=== PATIENT | female | born 1950 | race Caucasian/White ===

== ENCOUNTER → 2018-01-18 | Outpatient (CLI) | payer BC ==
[~2018-01-18] MED LIST: ASPIRIN325 PO; ATORVASTATIN CA40 MG PO; BAYER CHEWABLE81 MG PO; CALCIUM 600 +1 EA11 PO; CLOBETASOL PROP15 GM TOP; COLACE 100 MG100 MG PO; COQ-10100 MG PO; COSAMIN DS CAP1 EAC1 PO; COZAAR100 MG PO; EVISTA PO; HUMALOG100 UNIT/1 SUBQ; KOMBIGLYZE XR1 EAC2 PO; LANOXIN 0.120.125 M1 PO; LANTUS100 UNIT/M SUBQ; METROGEL60 GM TOP; MOBIC7.5 MG PO; NORVASC10 MG PO; OMEGA-31000 M1 PO; ORACEA40 MG PO; OXYCODONE HCL 55 MG PO; PERCOCET PO; PROLIA60 MG/1 ML SQ; TART CHERRY CA1 EACH PO; VITAMIN D31000 UNI2 PO; XARELTO10 MG PO
== END ==
LOC: M.RAD 13:17
DX: Z12.31 Encounter for screening mammogram for malignant neoplasm of breast (principal)

== ENCOUNTER → 2018-02-01 | Outpatient (CLI) | payer BC ==
[2018-02-01 10:54] LABS: CREATININE 0.7 mg/dL (0.6-1.3)
== END ==
LOC: M.LAB 10:30 → M.MRI 11:30
PROVIDERS: Family Medicine
DX: G45.9 Transient cerebral ischemic attack, unspecified (principal); M81.0 Age-related osteoporosis without current pathological fracture

== ENCOUNTER 2019-09-12 13:53 | Inpatient (IN) | payer BC ==
[~2019-09-12] VITALS: Ht 154.9 cm; Wt 64.2 kg
[~2019-09-12 13:53] MED LIST changes: -ATORVASTATIN CA40 MG PO; -COSAMIN DS CAP1 EAC1 PO; +COSAMIN DS CAP1 EACH PO; +LIPITOR40 MG PO
[2019-09-12 14:00] VITALS: BP 156/78
[2019-09-12] MEDS ORDERED: ARICEPT10 M1 PO ×2 (14:04→21:03)
[2019-09-12 14:29] LABS: ABSOLUTE BASOPHILS 0.1 thou/uL (0.0-0.2); ABSOLUTE EOSINOPHILS 0.2 thou/uL (0.0-0.7); ABSOLUTE MONOCYTES 0.4 thou/uL (0.0-1.2); ABSOLUTE NEUTROPHILS 3.3 thou/uL (1.6-8.1); BASOPHILS 0.9 %; EOSINOPHILS 3.9 %; HEMATOCRIT 36.2 % (37.0-47.0); HEMOGLOBIN 12.1 gm/dL (12.0-15.0); LYMPHOCYTES 33.1 %; MCH 26.5 pg (26.0-34.0); MCHC 33.3 g/dL (28.0-37.0); MCV 79.5 fL (80.0-100.0); MPV 8.6 fl. (7.2-11.1); NUCLEATED RBCS 0 /100WBC; PLATELET COUNT* 270 thou/uL (150-400); POLYS 55.1 %; RBC 4.56 mil/uL (4.20-5.00); RDW-CV 15.5 % (10.5-14.5); WBC 5.9 thou/uL (4.0-11.0)
[2019-09-12 14:37] LABS: CALCIUM 9.9 mg/dL (8.5-10.1); CREATININE 0.8 mg/dL (0.6-1.3); POTASSIUM 3.7 mmol/L (3.5-5.1)
[2019-09-12 14:38] LABS: PROTIME 10.7 Seconds (9.20-11.50)
[2019-09-12 14:42] LABS: ALBUMIN 3.5 g/dL (3.4-5.0); TOTAL BILIRUBIN 0.3 mg/dL (<0.1-1.0); TOTAL PROTEIN 7.1 g/dL (6.4-8.2)
--- NOTE | 2019-09-12 18:43 | NUR ---
PT TO MRI, MRI ORESTES TAKE PT TO ROOM AFTER TEST.
[2019-09-12 18:58] VITALS: BP 153/78
[2019-09-12 20:00] VITALS: BP 155/77
[2019-09-12] MEDS ORDERED: COENZYME Q10100 MG PO (21:01)
[2019-09-12] MEDS ORDERED: COLACE100 MG PO (21:02)
[2019-09-12] MEDS ORDERED: COSAMIN DS CAP1 EACH PO (21:03)
[2019-09-12] MEDS ORDERED: COZAAR 25 MG TA25 M1 PO (21:07)
[2019-09-12] MEDS ORDERED: OMEPRAZOLE 20 M20 M1 PO (21:08)
[2019-09-12] MEDS ORDERED: HUMALOG100 UNIT/1 SUBQ (21:14)
[2019-09-13] VITALS: BP 152/88
[2019-09-13 04:00] VITALS: BP 143/86
[2019-09-13 05:21] LABS: HEMATOCRIT 35.3 % (37.0-47.0); HEMOGLOBIN 11.6 gm/dL (12.0-15.0); MCH 26.2 pg (26.0-34.0); MCHC 32.9 g/dL (28.0-37.0); MCV 79.5 fL (80.0-100.0); MPV 8.5 fl. (7.2-11.1); RBC 4.44 mil/uL (4.20-5.00); RDW-CV 15.4 % (10.5-14.5); WBC 5.9 thou/uL (4.0-11.0)
[2019-09-13 05:39] LABS: ALBUMIN 3.1 g/dL (3.4-5.0); ALKALINE PHOSPHATASE 74 U/L (46-116); ANION GAP 10 mmol/L (7-16); BUN 14 mg/dL (7-18); CALCIUM 8.9 mg/dL (8.5-10.1); CHLORIDE 106 mmol/L (98-107); CHOLESTEROL 178 mg/dL (<200); CO2 26 mmol/L (21-32); CREATININE 0.7 mg/dL (0.6-1.3); GLUCOSE 101 mg/dL (70-99); HDL CHOLESTEROL 67 mg/dL (>40); LDL CHOLESTEROL 92 mg/dL (<100); MAGNESIUM 1.7 mg/dL (1.8-2.4); POTASSIUM 3.3 mmol/L (3.5-5.1); SGOT 19 U/L (15-37); SGPT 28 U/L (30-65); SODIUM 142 mmol/L (136-145); TC:HDL 2.7 Ratio (Not establshd); TOTAL BILIRUBIN 0.2 mg/dL (<0.1-1.0); TOTAL PROTEIN 6.3 g/dL (6.4-8.2); TRIGLYCERIDE 99 mg/dL (<150); VLDL 20 mg/dL (<40)
--- NOTE | 2019-09-13 06:06 | NUR ---
ASSUMED CARE OF PT AFTER REPORT AT 1920. PT TRANSFERRED TO RM 223. PT A&OX4. JINGLE WRITER IN PLACE. VSS. ADMISSION HISTORY & PHYSICAL ASSESSMENT COMPLETED AND CHARTED. PT ON RA. PT TRACING SR/1ST DEG ON TELE. PT DENIES ANY PAIN OR DISCOMFORT. NIH CHARTED. PT ABLE TO SLEEP WELL ON BED. CALL LIGHT WITHIN REACH.
[2019-09-13 06:07] LABS: SERUM ASSESSMENT Clear
[2019-09-13 08:17] VITALS: BP 149/73
--- NOTE | 2019-09-13 10:47 | NUR ---
ASSUMED CARE OF PT THIS AM AROUND 0715- JANITOR HELPER IN PLACE ORDERED, TRACING SR WITH 1ST DEGREE- UPON ASSESSMENT PT NOTED TO BE RESTING IN BED, WATCHING TV- PT A&O X4- CONTINENT OF B/B- UP AD-VIJAY IN ROOM, STEADY GAIT NOTED- VSS, O2 SAT 97% ON RA- ABD SOFT/ROUND/NON-TENDER, BS X4 QUADS- LAST BM REPORTED X2 DAYS AGO- FAIR PO INTAKE NOTED THIS AM WITH BREAKFAST- IV NOTED TO RIGHT AC INTACT AND SL-NIH NOTED AT 0 THIS AM- CARDIO CONSULTED NOTED THIS AM R/T ELEVATED TROPS- MRA OF CARTOTIDS COMPLETED THIS, RESULTS NOTED IN MEDITECH- PT UP WALKING HALLWAYS WITH PT THIS AM, TOLERATING WELL- DENIES ANY C/O PAIN/DISCOMFORT AT THIS TIME- CALL LIGHT AND PERSONAL BELONGINGS WITH IN REACH- PT MAKES NEEDS KNOWN- ALL NEEDS MET AT THIS TIME-WCTM
--- NOTE | 2019-09-13 11:26 | EKG ---
[place] [address] ELECTROCARDIOGRAM REPORT Name: SIMON LANIER Room: [address] ADM IN .R.#: [id number] Admission: 09/12/19 Attend Phys: Georgette Deras MD Discharge: Date of : 48 Report #: [id number] THIS REPORT FOR: //name// [facility] ED Test Date: 2019-09-12 Test Time: 15:51:42 Pat Name: SIMON LANIER Department: Room: [facility] Gender: F Formula Clerk: : 1950 Requested By: Dusty Edmondson Order Number: [id number] MD: Carlos Perez Measurements Intervals [place] Rate: 69 P: 29 OR: 207 QRS: 40 QRSD: 98 T: 56 QT: 395 QTc: 423 Interpretive Statements Sinus rhythm Baseline wander in lead(s) V1,V3,V6 Compared to ECG 06/15/2014 10:30:57 No significant changes Electronically Signed On 09-13-2019 11:26:48 GLASS DRILLER by Carlos Perez [email or web address] <ELECTRONICALLY SIGNED> By: Carlos Perez MD, FACC 09/13/19 1126 1551 1551 Carlos Perez MD, [facility] /EPI
[2019-09-13 12:00] VITALS: BP 136/67
[2019-09-13 16:00] VITALS: BP 142/59
[2019-09-13 20:00] VITALS: BP 127/70
[2019-09-14] VITALS: BP 167/80
[2019-09-14 02:12] LABS: GLYCOHEMOGLOBIN (HGB A1C) 7.8 % (4.8-5.6)
[2019-09-14 04:00] VITALS: BP 147/72
--- NOTE | 2019-09-14 05:08 | NUR ---
ASSUMED CARE OF PT AFTER REPORT AT 1930. PT A&OX4. VSS. PHYSICAL ASSESSMENT COMPLETED AND CHARTED. PT ON RA. PT TRACING SR/ DEG ON TELE. PT UPADLIB TO RESTROOM. NIH CHARTED. DENIES ANY PAIN OR DISCOMFORT. PT ABLE TO SLEEP WELL ON BED. CALL LIGHT WITHIN REACH.
[2019-09-14 08:06] VITALS: BP 135/69
--- NOTE | 2019-09-14 09:47 | NUR ---
ASSUMED CARE OF PT THIS AM AROUND 0715- PHARMACY SERVICE ASSOCIATE IN PLACE ORDERED, TRACING SR- UPON ASSESSMENT PT NOTED TO BE RESTING IN BED, WATCHING TV- PT A&O X4- CONTINENT OF BOWEL AND BLADDER- UP AD-VIJAY IN ROOM, STEADY GAIT NOTED- LCTA, RESP EVEN AND UN-LABORED- VSS, O2 SAT 98% ON RA- ABD SOFT/ROUND/NON-TENDER, BS X4 QUADS- PT REPORTS LAST BM 09/13/19- IV NOTED TO RIGHT AC INTACT AND SL- GOOD PO INTAKE NOTED THIS AM WITH BREAKFAST, BS MONITORED ORDERED- SSI AND ORAL MEDICATIONS PRESCRIBED- ARICEPT D/C'D PER NEURO THIS AM- PT DENIES ANY C/O PAIN/DISCOMFORT AT THIS TIME- CALL LIGHT AND PERSONAL BELONGINGS WITH IN REACH- ALL NEEDS MET AT THIS TIME-KASEY
[2019-09-14] MEDS ORDERED: LANOXIN125 MCG PO (10:40)
[2019-09-14] MEDS ORDERED: CLOPIDOGREL75 MG PO (10:40)
[2019-09-14 11:41] VITALS: BP 135/69
--- NOTE | 2019-09-14 12:00 | CON ---
[address] [address] CONSULTATION Name: SIMON LANIER Room: [address] IN .R.#: [id number] Admission: 09/12/19 Attend Phys: Georgette Deras MD Discharge: Date of : 48 Report #: [id number] THIS REPORT FOR: //name// CC: Georgette Carrillo DATE OF SERVICE: 09/13/2019 HISTORY OF PRESENT ILLNESS: The patient is a very pleasant 69-year-old female who awakened yesterday with heaviness and a funny sensation in the left arm. This persisted and she sought assistance in the [facility] Emergency Room. MRI revealed a punctate acute infarct in the right precentral gyrus compatible with her neurologic findings. Today on examination, she continues to note a funny sensation of heaviness with some weakness in left upper extremity. She denies any visual or speech abnormalities and there is no left lower extremity motor or sensory dysfunction. The patient does have a history of hypertension, diabetes, and hypercholesterolemia. Only cardiac problems have been that of paroxysmal supraventricular tachycardia and the aforementioned risk factors. MEDICATIONS: Have included amlodipine, aspirin, atorvastatin, calcium, Coenzyme Q, Aricept, insulin, losartan, meloxicam, omega 3 fatty acids, metformin, and sertraline. She denies any chest pain associated with the acute presentation and there is no history of known coronary disease or prior myocardial infarction. She does note mild dyspnea on exertion. Risk factors are the aforementioned diabetes, hypertension, and hypercholesterolemia. She denies cigarette smoking. PAST MEDICAL HISTORY: Remarkable for diabetes, hyperlipidemia, and hypertension. SOCIAL HISTORY: The patient is a nonsmoker. REVIEW OF SYSTEMS: Remarkable for the following positives. CARDIOVASCULAR: She notes some dyspnea on exertion. ENDOCRINE: She has type 2 diabetes. ALLERGIC AND IMMUNOLOGIC: She notes seasonal allergies. PSYCHIATRIC: There is a history of depression and chronic anxiety. EYES: She wears glasses with some diminution [place] [address] CONSULTATION Name: SIMON LANIER Room: [address]#: [id number] Admission: 09/12/19 Attend Phys: Georgette Deras MD Discharge: Date of : 48 Report #: [id number] Remainder of 13-point review of systems is unremarkable. PHYSICAL EXAMINATION: GENERAL: Demonstrates a pleasant elderly female who is alert and appropriate. VITAL SIGNS: Blood pressure is 145/75, pulse rate is 64 and regular, respirations are 18 per minute. NECK: Jugular venous pressure is normal. There are no carotid bruits. CHEST: Clear. CARDIAC: Reveals normal first and second heart sounds with a grade 2-3/6 systolic ejection type murmur at the base without transmission. ABDOMEN: Soft and nontender. EXTREMITIES: Without edema with intact pulses. NEUROLOGIC: Evaluation reveals mild weakness of the left upper extremity. There are no deformity or arthritic changes. She has no petechiae or ecchymosis. LABORATORY DATA: Remarkable for hemoglobin of 11.6, white blood cell count of 5900 with 264,000 platelets. Sodium 142, potassium 3.3, BUN 14, creatinine 0.7. Troponin minimally elevated at 0.15. IMPRESSION: 1. 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 2. History of paroxysmal supraventricular tachycardia. 3. Hypertension. 4. Hypercholesterolemia. 5. Type 2 diabetes. 6. Minimal increase in troponin I. RECOMMENDATIONS: 1. Continued focus on the primary issue, which is a small CVA related to the right precentral gyrus finding. 2. Continued ____ systemic pressure is acceptable at present. 3. Continue treatment of diabetes and hyperlipidemia. 4. I would not proceed with additional workup with a minimal increase in troponin I, rather than proceeding with echocardiogram to assess global and segmental LV function and potential for an embolic focus. Thank you for allowing us to see the patient in cardiovascular assessment. <ELECTRONICALLY SIGNED> By: Carlos Perez MD, FACC 09/14/19 1200 1035 1425Jofacundo Perez MD, FACC /nt
== END 2019-09-14 12:07 | disposition home or self-care (01) | DRG 65 ==
LOC: M.ERS 13:53 → M.2W 16:17 → M.TBA-ER 16:17 → M.2W 19:31
PROVIDERS: Emergency Medicine Emergency Medical Services; ADMIT Internal Medicine
DX: I63.89 Other cerebral infarction (principal); I47.1 Supraventricular tachycardia; Z96.651 Presence of right artificial knee joint; I10 Essential (primary) hypertension; E78.00 Pure hypercholesterolemia, unspecified; E78.5 Hyperlipidemia, unspecified; E11.9 Type 2 diabetes mellitus without complications; M81.0 Age-related osteoporosis without current pathological fracture; Z79.82 Long term (current) use of aspirin; Z88.0 Allergy status to penicillin; Z88.8 Allergy status to other drugs, medicaments and biological substances; Z79.899 Other long term (current) drug therapy

== ENCOUNTER → 2019-10-08 | Outpatient (CLI) | payer BC ==
[~2019-10-08] MED LIST changes: +ARICEPT10 M1 PO; +CLOPIDOGREL75 MG PO; +COENZYME Q10100 MG PO; +COLACE100 MG PO; +COZAAR 25 MG TA25 M1 PO; +LANOXIN125 MCG PO; +OMEPRAZOLE 20 M20 M1 PO
--- NOTE | 2019-10-08 13:57 | 2DMMODE ---
[place] [address] 2 D/M-MODE ECHOCARDIOGRAM Name: SIMON LANIER Room: [facility]#: [id number] Admission: 10/08/19 Attend Phys: Reid Michel, Discharge: Date of : 48 Date of Service: 10/08/19 1356 Report #: [id number] THIS REPORT FOR: //name// APPROVED REPORT Study performed: 10/08/2019 11:04:57 EXAM: Comprehensive 2D, Doppler, and color-flow Echocardiogram/ Bubble Study Patient Location: Out-Patient BSA: 1.60 HR: 74 bpm BP: 120/70 mmHg Other Information Study Quality: Good Indications CVA/TIA Echo Enhancing Agent Indication: Rule out Shunt Agent(s) / Amount(s) Used: Agitated Saline 10 cc 2D Dimensions IVSd: 10.30 (7-11mm) LVOT Diam: 19.97 (18-24mm) LVDd: 35.09 mm PWd: 8.94 (7-11mm) Ascending Ao: 27.22 (22-36mm) LVDs: 21.92 (25-40mm) Aortic Root: 22.56 mm Volumes Left Atrial Volume (Systole) LA ESV Index: 19.60 mL/m2 Aortic Valve AoV Peak Naresh.: 1.49 m/s AO Peak Gr.: 8.82 mmHg LVOT Max P.11 mmHg AO Mean Gr.: 5.10 mmHg LVOT Mean P.05 mmHg LVOT Max V: 1.42 m/s AO V2 VTI: 31.54 cm LVOT Mean V: 0.93 m/s MUKESH (VTI): 3.00 cm2 LVOT V1 VTI: 30.23 cm AI [place]: 2.39 m/s2 AI PHT: 488.46 [place] [address] 2 D/M-MODE ECHOCARDIOGRAM Name: SIMON LANIER Room: [facility]#: [id number] Admission: 10/08/19 Attend Phys: Reid Michel, Discharge: Date of : 48 Date of Service: 10/08/19 1356 Report #: [id number] Mitral Valve E/A Ratio: 0.65 MV Decel. Time: 308.72 ms MV E Max Naresh.: 0.67 m/s MV PHT: 89.53 ms MVA (PHT): 2.46 cm2 TDI E/Lateral E': 7.44 E/Medial E': 9.57 Medial E' Naresh.: 0.07 m/s Lateral E' Naresh.: 0.09 m/s Pulmonary Valve PV Peak Naresh.: 1.20 m/s PV Peak Gr.: 5.78 mmHg Tricuspid Valve RAP Estimate: 5.00 mmHg TR Peak Gr.: 22.95 mmHg RVSP: 27.95 mmHg PA Pressure: 27.95 mmHg Left Ventricle The left ventricle is normal size. There is normal LV segmental wall motion. There is normal left ventricular wall thickness. Left ventricular systolic function is normal. The left ventricular ejection fraction is within the normal range. LVEF is 60%. Grade I - abnormal relaxation pattern. Right Ventricle The right ventricle is normal size. The right ventricular systolic function is normal. Atria The left atrium size is normal. Injection of bubbles documented no interatrial shunt. The right atrium size is normal. Aortic Valve Aortic valve is mildly calcified. Mild aortic regurgitation. There is no aortic valvular stenosis. Mitral Valve Mild mitral annular calcification. Mitral valve leaflets are mildly calcified. There is no mitral valve regurgitation noted. No evidence of mitral valve stenosis. Tricuspid Valve The tricuspid valve is normal in structure[place] [address] 2 D/M-MODE ECHOCARDIOGRAM Name: SIMON LANIER Yarelis Room: [facility]#: [id number] Admission: 10/08/19 Attend Phys: Reid Michel, Discharge: Date of : 48 Date of Service: 10/08/19 1356 Report #: [id number] regurgitation. Pulmonic Valve The pulmonary valve is normal in structure. There is no pulmonic valvular regurgitation. Great Vessels The aortic root is normal in size. IVC is normal in size and collapses >50% with inspiration. Pericardium There is no pericardial effusion. <Conclusion> The left ventricle is normal size. There is normal left ventricular wall thickness. Left ventricular systolic function is normal. The left ventricular ejection fraction is within the normal range. LVEF is 60%. Grade I - abnormal relaxation pattern. The right ventricle is normal size. The left atrium size is normal. Aortic valve is mildly calcified. Mild aortic regurgitation. There is no aortic valvular stenosis. Mild mitral annular calcification. Mitral valve leaflets are mildly calcified. There is no mitral valve regurgitation noted. No evidence of mitral valve stenosis. The tricuspid valve is normal in structure. Mild tricuspid regurgitation. IVC is normal in size and collapses >50% with inspiration. There is no pericardial effusion. There is normal LV segmental wall motion. Injection of bubbles documented no interatrial shunt. <ELECTRONICALLY SIGNED> By: Carlos Perez MD, FACC 10/08/19 1356 1356 1356 Carlos Perez MD, FACC /INF
== END ==
LOC: M.CRD 09-29 11:00
DX: I08.8 Other rheumatic multiple valve diseases (principal); I47.1 Supraventricular tachycardia

== ENCOUNTER 2020-02-25 19:02 | Inpatient (IN) | payer BC ==
[~2020-02-25] VITALS: Ht 152.4 cm; Wt 65.5 kg
[2020-02-25 19:13] VITALS: BP 144/83
[2020-02-25 19:40] LABS: ABSOLUTE EOSINOPHILS 0.2 thou/uL (0.0-0.7); ABSOLUTE LYMPHOCYTES 1.9 thou/uL (0.8-5.3); ABSOLUTE MONOCYTES 0.5 thou/uL (0.0-1.2); ABSOLUTE NEUTROPHILS 3.6 thou/uL (1.6-8.1); BASOPHILS 0.5 %; EOSINOPHILS 3.1 %; HEMATOCRIT 35.6 % (37.0-47.0); HEMOGLOBIN 11.9 gm/dL (12.0-15.0); LYMPHOCYTES 30.5 %; MCH 25.1 pg (26.0-34.0); MCHC 33.4 g/dL (28.0-37.0); MCV 75.2 fL (80.0-100.0); MONOCYTES 7.3 %; MPV 8.8 fl. (7.2-11.1); NUCLEATED RBCS 0 /100WBC; PLATELET COUNT* 272 thou/uL (150-400); POLYS 58.6 %; RBC 4.74 mil/uL (4.20-5.00); RDW-CV 17.4 % (10.5-14.5); WBC 6.2 thou/uL (4.0-11.0)
[2020-02-25 19:48] LABS: APTT 24.1 Seconds (25.0-31.3); CALCIUM 9.3 mg/dL (8.5-10.1); INR 1.1; POTASSIUM 3.8 mmol/L (3.5-5.1); PROTIME 10.9 Seconds (9.20-11.50)
[2020-02-25 19:52] LABS: ALBUMIN 3.8 g/dL (3.4-5.0); MAGNESIUM 1.6 mg/dL (1.8-2.4); TOTAL BILIRUBIN 0.3 mg/dL (<0.1-1.0); TOTAL PROTEIN 7.3 g/dL (6.4-8.2)
[2020-02-25 20:14] LABS: URINE BILIRUBIN NEGATIVE (Negative); URINE BLOOD NEGATIVE (Negative); URINE CLARITY CLEAR; URINE COLOR YELLOW; URINE GLUCOSE-RANDOM TRACE (Negative); URINE KETONES NEGATIVE (Negative); URINE LEUKOCYTES-REFLEX NEGATIVE (Negative); URINE NITRITE-REFLEX NEGATIVE (Negative); URINE PROTEIN NEGATIVE (Negative); URINE SPECIFIC GRAVITY <= 1.005 (1.005-1.030); URINE UROBILINOGEN 0.2 E.U./dl (0.2-1.0)
[2020-02-25 21:35] VITALS: BP 163/80
[2020-02-25 21:45] VITALS: BP 141/76
[2020-02-26] VITALS: BP 130/80
[2020-02-26 04:00] VITALS: BP 126/66
--- NOTE | 2020-02-26 06:03 | NUR ---
PATIENT ARRIVED ON FLOOR FROM ER AT ABOUT 2140. PATIENT ADMISSION HISTORY AND ASSESSMENT WAS COMPLETED CHARTED. IV FLUIDS WERE STARTED AT 100 ML/HR. PATIENT CONTINUES TO HAVE WEAKNESS IN R ARM AND LEG BUT IS ABLE TO MOVE THEM AND GET TO THE BESIDE COMMODE WITH ASSIST. WILL CONTINUE TO MONITOR.
[2020-02-26 07:51] VITALS: BP 147/85
[2020-02-26 10:25] LABS: CREATININE 0.9 mg/dL (0.6-1.3); MAGNESIUM 1.6 mg/dL (1.8-2.4); POTASSIUM 3.4 mmol/L (3.5-5.1)
[2020-02-26 10:38] LABS: CHOLESTEROL 216 mg/dL (<200); HDL CHOLESTEROL 68 mg/dL (>40); LDL CHOLESTEROL 126 mg/dL (<100); TC:HDL 3.2 Ratio (Not establshd); TRIGLYCERIDE 110 mg/dL (<150); VLDL 22 mg/dL (<40)
[2020-02-26 10:39] LABS: SERUM ASSESSMENT Clear
[2020-02-26 12:42] VITALS: BP 113/74
--- NOTE | 2020-02-26 14:04 | NUR ---
NOTIFIED BY RADIOLOGISTS MRI SHOWS ACUTE LEFT PARIETAL INFARCT. NEUROLOGISTS PAGED AT THIS TIME.
--- NOTE | 2020-02-26 14:20 | EKG ---
[place] [address] ELECTROCARDIOGRAM REPORT Name: SIMON LANIER Room: [address] ADM IN [facility].#: [id number] Admission: 02/25/20 Attend Phys: Kilo Schrader Discharge: Date of : 48 Date of Service: 02/25/201911 Report #: [id number] THIS REPORT FOR: //name// [facility] ED Test Date: 2020-02-25 Test Time: 19:12:05 Pat Name: SIMON LANIER Department: Room: [facility] Gender: F Host: [place] : 1950 Requested By: Lashawn Sim Order Number: [id number] MD: August Rhoades Measurements Intervals [place] Rate: 70 P: 37 AL: 202 QRS: -5 QRSD: 98 T: 48 QT: 382 QTc: 413 Interpretive Statements Sinus rhythm incomplete RBBB old anterior CO Compared to ECG 09/12/2019 15:51:42 No significant changes Electronically Signed On 02-26-2020 14:18:54 CDT by August Rhoades [email or web address] <ELECTRONICALLY SIGNED> By: August Rhoades MD, [facility] 02/26/20 1418 11 11 August Rhoades MD, [facility] /EPI
--- NOTE | 2020-02-26 15:59 | NUR ---
ASSUMED CARE OF PT AROUND 0730 THIS AM. REFER TO ASSESSMENT. PT NOTED TO HAVE NIH AROUND 6 THIS AM. NEUROLOGY CONSULTED THIS SHIFT. STROKE WORKUP INCLUDING US CAROTIDS, ECHO, AND MRI COMPLETED THIS SHIFT. REFER TO RESULTS. PT STARTED ON PT/OT/ST THIS SHIFT. ABLE TO TRANSFER WITH ASSIST X1 TO BSC AND CHAIR. PT CONTINUES TO HAVE WEAKNESS TO RT SIDE. POTASSIUM AND MAGNESIUM BEING REPLACED THIS SHIFT. VSS. TELE SR. NO OTHER CONCERNS AT THIS TIME. CLWR. WCTM.
--- NOTE | 2020-02-26 16:09 | 2DMMODE ---
[place] [address] 2 D/M-MODE ECHOCARDIOGRAM Name: SIMON LANIER Room: [address] IN [facility]#: [id number] Admission: 02/25/20 Attend Phys: Kilo Schrader Discharge: Date of : 48 Date of Service: 02/26/20 1607 Report #: [id number] THIS REPORT FOR: cc: Elise Carrillo,Reid Gibson MD [facility] ~ APPROVED REPORT Study performed: 02/26/2020 15:03:10 EXAM: Comprehensive 2D, Doppler, and color-flow Echocardiogram Patient Location: In-Patient Room #: [facility] Status: routine BSA: 1.61 HR: 72 bpm BP: 147/85 mmHg Rhythm: NSR Other Information Study Quality: Good Indications CVA/TIA Bubble study was completed on prior echo in Sep 2019. It was negative for PFO 2D Dimensions IVSd: 13.52 (7-11mm) LVOT Diam: 19.92 (18-24mm) LVDd: 38.14 mm PWd: 10.65 (7-11mm) Ascending Ao: 33.10 (22-36mm) LVDs: 25.08 (25-40mm) Aortic Root: 31.46 mm Volumes Left Atrial Volume (Systole) LA ESV Index: 22.40 mL/m2 Aortic Valve AoV Peak Naresh.: 1.29 m/s AO Peak Gr.: 6.65 mmHg LVOT Max P.22 mmHg AO Mean Gr.: 3.92 mmHg LVOT Mean P.06 mmHg LVOT Max V: 1.25 m/s AO V2 VTI: 25.48 cm LVOT Mean V: 0.80 m/[place] [address] 2 D/M-MODE ECHOCARDIOGRAM Name: SIMON LANIER Room: [address] IN [facility]#: [id number] Admission: 02/25/20 Attend Phys: Kilo Schrader Discharge: Date of : 48 Date of Service: 02/26/20 1607 Report #: [id number] MUKESH (VTI): 3.01 cm2 LVOT V1 VTI: 24.58 cm Mitral Valve E/A Ratio: 0.66 MV Decel. Time: 273.50 ms MV E Max Naresh.: 0.77 m/s MV PHT: 79.31 ms MVA (PHT): 2.77 cm2 TDI E/Lateral E': 11.00 E/Medial E': 11.00 Medial E' Naresh.: 0.07 m/s Lateral E' Naresh.: 0.07 m/s Pulmonary Valve PV Peak Naresh.: 1.27 m/s PV Peak Gr.: 6.46 mmHg Left Ventricle The left ventricle is normal size. There is a focal region of akinesis involving the apical septum and apex. There is normal left ventricular wall thickness. Left ventricular systolic function is preserved. LVEF is 60-65%. Grade I - abnormal relaxation pattern. Right Ventricle The right ventricle is normal size. The right ventricular systolic function is normal. Atria The left atrium size is normal. The right atrium size is normal. Aortic Valve Mild aortic valve sclerosis. Trace aortic regurgitation. There is no aortic valvular stenosis. Mitral Valve There is mitral annular calcification. There is no mitral valve regurgitation noted. No evidence of mitral valve stenosis. Tricuspid Valve The tricuspid valve is normal in structure. Unable to assess PA pressure. Trace tricuspid regurgitation. Pulmonic Valve The pulmonary valve is normal in structure. There is [place] [address] 2 D/M-MODE ECHOCARDIOGRAM Name: SIMON LANIER Room: [address]#: [id number] Admission: 02/25/20 Attend Phys: Kilo Schrader Discharge: Date of : 48 Date of Service: 02/26/20 1607 Report #: [id number] valvular regurgitation. Great Vessels The aortic root is normal in size. IVC is normal in size and collapses >50% with inspiration. Pericardium There is no pericardial effusion. <Conclusion> The left ventricle is normal size. There is normal left ventricular wall thickness. Left ventricular systolic function is preserved. LVEF is 60-65%. Grade I - abnormal relaxation pattern. There is a focal region of akinesis involving the apical septum and apex. Mild aortic valve sclerosis. Trace aortic regurgitation. There is mitral annular calcification. Unable to assess PA pressure. Trace tricuspid regurgitation. IVC is normal in size and collapses >50% with inspiration. <ELECTRONICALLY SIGNED> By: Reid Michel MD, FACC 02/26/20 1607 1607 1607 Reid Mcihel MD, FACC /INF
[2020-02-26 16:15] VITALS: BP 131/70
--- NOTE | 2020-02-26 17:02 | NUR ---
SW called pt in pt room to complete initial assessment. Pt alert, oriented. Pt lives at home alone. Pt has support in dtr and sister who live in the area. Pt was independent prior to hospitalization. No DME or any hx with SNF or HH services. Pt is not sure of her dc needs at this time. SW to continue to follow to assist with safe dc planning.
--- NOTE | 2020-02-26 17:48 | CON ---
[facility] [address] [place] [address] CONSULTATION Name: SIMON LANIER Room: [address] IN .R.#: [id number] Admission: 02/25/20 Attend Phys: Finesse Waldron Discharge: Date of : 48 Report #: [id number] THIS REPORT FOR: //name// cc: Elise Carrillo Linda J. DO ~ THIS REPORT FOR: //name// CC: Elise Schrader DATE OF SERVICE: 02/26/2020 HISTORY OF PRESENT ILLNESS: This is a 69-year-old female patient, who was evaluated by me for weakness on the right side. I discussed the patient with Dr. Hernandez and I reviewed the notes. The consultation was requested this morning to me, but reviewing the records from the Emergency Room indicated they talked to some neurologist last night when they admitted the patient. There is no further notation for me to find out which neurologist they talked to. In any event, this patient had weakness on the right side, which started at 1730 yesterday as per the Emergency Room note. In the Emergency Room, they did a CT scan of the head, which does not show any acute abnormality. The patient indicated that she had a stroke last year and I did pull out her old record and her MRI had indicated a punctate stroke. She had weakness on the left side, which resolved. It does not look like it lasted very long. REVIEW OF SYSTEMS: Indicate that this present deficit which she is complaining of is pretty unusual. It involved the right shoulder, it involved the right leg, but does involve much of the right hand. She has no speech difficulty associated with it and she does not have any facial palsy. She indicated that she does not have any sensory loss there. A 14-point review of system was carried out. She indicates she has a history of diabetes and hypertension. She had a prior episode of what looked like a stroke at that time from reviewing the old record. Then, she had onset of the right-sided weakness yesterday around 1750 and it is about the same as I understand from the patient. As mentioned above, I received this consult today. PAST MEDICAL HISTORY: Positive for CVA. FAMILY HISTORY: Negative for early age stroke. SOCIAL HISTORY: She denies use of tobacco. PHYSICAL EXAMINATION: GENERAL: Indicates she is alert, responsive, able to follow simple and complex command. Her speech looks intact. NEUROLOGIC: Cranial nerve examination 2-12 looks mostly [place] [address] CONSULTATION Name: MAGDIEL LANIERSHARI Santoyo Room: [address] [place] [facility]#: [id number] Admission: 02/25/20 Attend Phys: Finesse Waldron Discharge: Date of : 48 Report #: [id number] not see any hemianopsia and I did not see any facial weakness. She is pretty significantly weak in the right shoulder and barely moves it there. She can move her right shoulder reasonably well. Right leg, she is weak and she is significantly weak there. She says her sensation is intact and she can tell me about the position sense. EXTREMITIES: She had a knee surgery, so I cannot compare the knee jerks on both sides. There is no papilledema. CARDIAC: Appear unremarkable. Blood pressure is about 113/74, respiration is 18, pulse is 71, temperature is 98.8. LABORATORY DATA: Her white count is 6.2. Glucose is 282. CT as described above and the carotid Doppler appear unremarkable. IMPRESSION: The first thing we need to consider is a small-vessel cerebrovascular accident in this patient. Because of that, I would like to do an MRI as soon as possible. I talked to the MRI people and they said they will do the MRI soon and we will review that. It is unlikely that this patient will be any intervention candidate at this stage. As mentioned above, the Emergency Room records indicate that they talked to neurologist, but I do not know and I cannot find which neurologist they talked to. In any event, the main treatment is going to be the rehab. If the patient had a new stroke, this patient will need extensive workup to look for atrial fibrillation. This patient will also need a collagen vascular workup. She will need to be on a combination of aspirin and Plavix if she has stroke, at least for 30 days, but may be longer. She is already started on statin and she needs to control her vascular risk factor pretty extensively and with this much weakness, she will probably go to rehab and that consultation is already in. Around 50 minutes of time was spent taking care of this patient and majority of that time was spent counseling and coordinating her care, including review of her extensive prior records. <ELECTRONICALLY SIGNED> By: Nithin Parra MD 02/26/20 1748 1333 1354Pgigi Parra MD /nt
[2020-02-26 20:00] VITALS: BP 130/74
[2020-02-26 21:30] LABS: MAGNESIUM 1.8 mg/dL (1.8-2.4); POTASSIUM 3.9 mmol/L (3.5-5.1)
[2020-02-27] VITALS (7 sets, daily range): BP systolic 124–157; BP diastolic 75–84
[2020-02-27 02:07] LABS: GLYCOHEMOGLOBIN (HGB A1C) 8.9 % (4.8-5.6)
--- NOTE | 2020-02-27 05:58 | NUR ---
PATIENT SLEPT MOST OF THE NIGHT. IV REMAINS SALINE LOCKED. R LEG REMAINS VERY WEAK. PATIENT TRANSFERS TO BEDSIDE COMMODE BETTER WITH A GAITBELT AND TWO PEOPLE TO ASSIST. WILL CONTINUE TO MONITOR.
--- NOTE | 2020-02-27 12:33 | NUR ---
Pt may need inpt rehab at dc prior to returning home. SW called pt sister Kelsy who is retired and able to assist pt at dc if needed. Pt has very supportive family and pt sister has a ranch style home so pt could stay with her at dc if needed. SW to continue to follow to assist with safe dc planning. Pending inpt rehab consult/response.
--- NOTE | 2020-02-27 13:24 | NUR ---
ASSUMED CARE OF PATIENT THIS AM AT 0730. PATIENT IS ALERT AND ORIENTED X 4. SHE DENIES PAIN AND DISCOMFORT. PATIENT ASSISTED UP TO THE CHAIR THIS BEFORE LUNCH. FSBS MONITORED. TELE SHOWS NSR. NO DECLINE OF NEURO STATUS. PATIENT IS WANTING TO TAKE HER OWN DOSAGE OF INSULIN. WILL NOTIFY PHYSICIAN. PATIENT IS WORKING WITH PT AND OT.
[2020-02-28] VITALS: BP 139/80
[2020-02-28 04:00] VITALS: BP 138/72
[2020-02-28 08:00] VITALS: BP 140/83
[2020-02-28] MEDS ORDERED: DOXYCYCLINE HYC50 MG PO (10:21)
[2020-02-28] MEDS ORDERED: METROGEL-VAGINA70 GM TOP (10:22)
[2020-02-28] MEDS ORDERED: CO Q-10100 M1 PO (10:32)
[2020-02-28 12:00] VITALS: BP 93/69
[2020-02-28 16:00] VITALS: BP 122/74
[2020-02-28 20:00] VITALS: BP 130/74
[2020-02-29] VITALS: BP 159/88
[2020-02-29 04:00] VITALS: BP 136/68
--- NOTE | 2020-02-29 04:09 | NUR ---
ASSUMED PATIENT CARE AT 1900. ASSESSMENT COMPLETED CHARTED. PATIENT IS NSR ON THE MONITOR. FALL PRECAUTIONS IN PLACE FOR PATIENT SAFETY. HOURLY ROUNDING IN PLACE FOR PATIENT SAFETY. CLWR.
[2020-02-29 04:30] LABS: HEMATOCRIT 33.6 % (37.0-47.0); HEMOGLOBIN 11.1 gm/dL (12.0-15.0); MCH 24.9 pg (26.0-34.0); MCV 75.5 fL (80.0-100.0); MPV 8.2 fl. (7.2-11.1); RBC 4.45 mil/uL (4.20-5.00); RDW-CV 17.1 % (10.5-14.5); WBC 5.7 thou/uL (4.0-11.0)
[2020-02-29 04:53] LABS: ALBUMIN 3.1 g/dL (3.4-5.0); CALCIUM 8.8 mg/dL (8.5-10.1); CREATININE 0.8 mg/dL (0.6-1.3); MAGNESIUM 1.8 mg/dL (1.8-2.4); PHOSPHORUS* 4.1 mg/dL (2.5-4.9); POTASSIUM 3.5 mmol/L (3.5-5.1)
[2020-02-29 05:03] LABS: % SATURATION 10 % (20-39); IRON 33 ug/dL (50-175)
[2020-02-29 08:00] VITALS: BP 144/85
[2020-02-29 12:00] VITALS: BP 127/67
[2020-02-29 17:09] VITALS: BP 118/69
[2020-02-29 20:41] VITALS: BP 153/77
[2020-03-01] VITALS: BP 184/85
[2020-03-01 01:10] VITALS: BP 167/82
[2020-03-01 04:00] VITALS: BP 149/88
--- NOTE | 2020-03-01 05:52 | NUR ---
PT IS ABLE TO COMMUNICATE HER NEEDS TO STAFF EFFECTIVELY. SHE HAS DENIED THE NEED FOR PAIN MEDICATION UP TO THIS TIME. STILL SOME WEAKNESS TO HER RIGHT SIDE, MORE PROMINENT IN THE LEG THAN ARM. POSSIBLE D/C TO REHAB LATER TODAY OR TOMORROW. PT GETTING UP TO BEDSIDE COMODE WITH SBA, WEAKNESS TO RIGHT SIDE, CALLS APPROPRIATELY FOR HELP; TOLERATING WELL.
[2020-03-01] MEDS ORDERED: IRON325 PO (08:49)
[2020-03-01] MEDS ORDERED: ASA5UEC PO (08:49)
[2020-03-01] MEDS ORDERED: FOLIC ACID1 MG PO (08:50)
[2020-03-01 12:07] VITALS: BP 150/70
[2020-03-01 16:00] VITALS: BP 151/76
--- NOTE | 2020-03-01 20:26 | NUR ---
I ASSUMED CARE OF THE PATIENT AT 0700. SHE IS ALERT AND ORIENTED X4 AND IS UP WITH STANDBY ASSIST. SHE USES A GAIT BELT AND A WALKER TO THE BEDSIDE COMMODE. BED IS IN THE LOW LOCKED POSITION AND CALL LIGHT IS IN REACH. HOURLY ROUNDING IS COMPLETED AND PATIENT NEEDS ARE MET. PAIN IS DENIED. IRON INFUSION WAS COMPLETED AND PATIENT SHOULD GO UP TO REHAB, BUT THERE WERE NO BEDS OPEN TODAY, SHOULD BE SOON. NIH WAS COMPLETED AND RIGHT LEG IS JUST HEAVY. SHE JUST NEEDS SOME TIME AND ENCOURAGMENT. BLOOD SUGAR IS MONITORED AND MANAGED. WILL CONTINUE TO MONITOR.
[2020-03-01 20:44] VITALS: BP 152/75
[2020-03-02] VITALS: BP 125/66
[2020-03-02 04:00] VITALS: BP 141/66
--- NOTE | 2020-03-02 05:45 | NUR ---
PT IS ABLE TO COMMUNICATE HER NEEDS TO STAFF EFFECTIVELY. SHE HAS DENIED THE NEED FOR PAIN MEDICATION UP TO THIS TIME. PT GETTING UP TO BEDSIDE COMODE WITH SBA; TOLERATING WELL AND DOING THE MAJORITY OF THE WORK HERSELF, BUT IS STILL A BIT UNSTEADY AND THE RIGHT LEG WILL NOT ALWAYS "COOPERATE" BUT IS IMPROVING VERSUS PREVIOUS NIGHT. POSSIBLE DISCHARGE AND READMIT TO 3RD FLOOR REHAB HERE TODAY.
[2020-03-02 08:13] VITALS: BP 131/58
[2020-03-02 11:46] VITALS: BP 125/62
[2020-03-02 16:49] VITALS: BP 138/64
--- NOTE | 2020-03-02 17:14 | NUR ---
ASSUMED CARE OF PT AROUND 0730 THIS AM. REFER TO ASSESSMENT. PT TO TRANSFER TO REHAB THIS EVENING. ORDERS FAXED AND WAITING TO GIVE REPORT TO RECEIVING RN. PT STB/ ASSIST X1 TO BSC. PT ANXIOUS TO TRANSFER TO REHAB. NO OTHER CONCERNS AT THIS TIME. CLWR. WCTM.
== END 2020-03-02 18:15 | DRG 65 ==
LOC: M.ERS 19:02 → M.TBA-ER 20:45 → M.2W 20:45
PROVIDERS: Family Medicine; Internal Medicine; Personal Emergency Response Attendant; Psychiatry & Neurology Neuromuscular Medicine; ADMIT Internal Medicine
DX: I63.89 Other cerebral infarction (principal); E87.2 Acidosis; I69.354 Hemiplegia and hemiparesis following cerebral infarction affecting left non-dominant side; G83.21 Monoplegia of upper limb affecting right dominant side; G83.11 Monoplegia of lower limb affecting right dominant side; Z96.651 Presence of right artificial knee joint; E78.00 Pure hypercholesterolemia, unspecified; M81.0 Age-related osteoporosis without current pathological fracture; I10 Essential (primary) hypertension; E83.42 Hypomagnesemia; D50.9 Iron deficiency anemia, unspecified; E11.65 Type 2 diabetes mellitus with hyperglycemia; M48.02 Spinal stenosis, cervical region; E11.40 Type 2 diabetes mellitus with diabetic neuropathy, unspecified; E78.5 Hyperlipidemia, unspecified; Z79.01 Long term (current) use of anticoagulants; Z79.899 Other long term (current) drug therapy; Z79.4 Long term (current) use of insulin; Z88.0 Allergy status to penicillin; Z88.8 Allergy status to other drugs, medicaments and biological substances; Z91.09 Other allergy status, other than to drugs and biological substances

== ENCOUNTER 2020-03-02 16:39 | Inpatient (IN) | payer BC ==
[~2020-03-02] VITALS: Ht 152.4 cm; Wt 63.9 kg
[~2020-03-02 16:39] MED LIST changes: +ASA5UEC PO; +CO Q-10100 M1 PO; +DOXYCYCLINE HYC50 MG PO; +FOLIC ACID1 MG PO; +IRON325 PO; +METROGEL-VAGINA70 GM TOP
[2020-03-02 19:02] VITALS: BP 142/77
[2020-03-03 06:08] LABS: HEMATOCRIT 31.7 % (37.0-47.0); HEMOGLOBIN 10.7 gm/dL (12.0-15.0); MCH 25.7 pg (26.0-34.0); MCHC 33.7 g/dL (28.0-37.0); MCV 76.1 fL (80.0-100.0); MPV 8.8 fl. (7.2-11.1); RBC 4.16 mil/uL (4.20-5.00); RDW-CV 17.2 % (10.5-14.5); WBC 4.9 thou/uL (4.0-11.0)
[2020-03-03 06:15] LABS: CALCIUM 9.2 mg/dL (8.5-10.1); CREATININE 0.7 mg/dL (0.6-1.3); POTASSIUM 3.6 mmol/L (3.5-5.1)
[2020-03-03 08:45] VITALS: BP 128/70
[2020-03-03 19:00] VITALS: BP 151/70
[2020-03-04 08:00] VITALS: BP 109/64
[2020-03-04 19:40] VITALS: BP 157/80
[2020-03-04 20:00] VITALS: BP 157/80
[2020-03-05 09:13] VITALS: BP 142/83
[2020-03-05 20:39] VITALS: BP 157/73
[2020-03-06 08:36] VITALS: BP 148/82
[2020-03-06 20:21] VITALS: BP 145/75
[2020-03-07 08:00] VITALS: BP 136/74
[2020-03-07 19:35] VITALS: BP 135/66
[2020-03-08 08:33] VITALS: BP 137/75
[2020-03-08 19:15] VITALS: BP 110/63
[2020-03-09 07:02] LABS: % SATURATION 23 % (20-39); CREATININE 0.8 mg/dL (0.6-1.3); IRON 67 ug/dL (50-175); MAGNESIUM 1.7 mg/dL (1.8-2.4); PHOSPHORUS* 3.3 mg/dL (2.5-4.9); POTASSIUM 3.8 mmol/L (3.5-5.1)
[2020-03-09 19:30] VITALS: BP 123/63
[2020-03-10 08:57] VITALS: BP 142/73
[2020-03-10 20:21] VITALS: BP 129/76
[2020-03-11 08:00] VITALS: BP 140/83
[2020-03-11 20:50] VITALS: BP 150/81
[2020-03-12 09:06] VITALS: BP 146/74
[2020-03-12 20:00] VITALS: BP 131/79
[2020-03-13 08:02] VITALS: BP 141/71
[2020-03-13 20:10] VITALS: BP 131/67
[2020-03-14 08:00] VITALS: BP 134/70
[2020-03-14 19:40] VITALS: BP 111/77
[2020-03-15 08:00] VITALS: BP 142/76
[2020-03-15 19:59] VITALS: BP 136/70
[2020-03-16 07:50] VITALS: BP 131/76
[2020-03-16 19:40] VITALS: BP 134/70
[2020-03-17 08:00] VITALS: BP 131/77
[2020-03-17 19:25] VITALS: BP 137/79
[2020-03-18 08:00] VITALS: BP 134/79
[2020-03-18] MEDS ORDERED: LIPITOR40 MG PO (09:40)
[2020-03-18] MEDS ORDERED: PEPCID20 MG PO (09:40)
[2020-03-18] MEDS ORDERED: CLOPIDOGREL75 MG PO (09:40)
[2020-03-18 11:22] VITALS: BP 134/79
[2020-03-18 13:28] VITALS: BP 134/79
== END 2020-03-18 13:00 | disposition home or self-care (01) | DRG 56 ==
LOC: M.REH 16:39
PROVIDERS: Family Medicine; ADMIT Physical Medicine & Rehabilitation
DX: I69.351 Hemiplegia and hemiparesis following cerebral infarction affecting right dominant side (principal); I63.9 Cerebral infarction, unspecified; E87.2 Acidosis; I10 Essential (primary) hypertension; E11.65 Type 2 diabetes mellitus with hyperglycemia; E83.42 Hypomagnesemia; R53.81 Other malaise; M48.02 Spinal stenosis, cervical region; I80.8 Phlebitis and thrombophlebitis of other sites; E78.5 Hyperlipidemia, unspecified; E78.00 Pure hypercholesterolemia, unspecified; M81.0 Age-related osteoporosis without current pathological fracture; R29.702 NIHSS score 2; L71.9 Rosacea, unspecified; Z96.651 Presence of right artificial knee joint; K59.00 Constipation, unspecified; D50.9 Iron deficiency anemia, unspecified; Z88.8 Allergy status to other drugs, medicaments and biological substances; Z88.0 Allergy status to penicillin; Z91.048 Other nonmedicinal substance allergy status; Z79.4 Long term (current) use of insulin

== ENCOUNTER → 2020-04-14 | Outpatient (CLI) | payer BC ==
[~2020-04-14] MED LIST changes: +PEPCID20 MG PO
--- NOTE | 2020-04-19 15:33 | 24HR ---
[place] [address] [employer] REPORT Name: SIMON LANIER Room: [facility]#: [id number] Admission: 04/14/20 Attend Phys: Beverly Mir MD Discharge: Date of : 48 Date of Service: 08/26/20 1106 Report #: [id number] THIS REPORT FOR: cc: Elise Carrillo Linda J. DO Blick, David R. 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 sinus rhythm with sinus tachycardia 2. rare pac's and a supraventricular couplet 3. rare pvc 4. no symptoms recorded in diary Electronically Signed On 04-19-2020 15:32:59 CDT by August Rhoades [email or web address] <ELECTRONICALLY SIGNED> By: August Rhoades MD, [facility] 04/19/20 1532 1106 1106 August Rhoades MD, [facility] /EPI
== END ==
LOC: M.CRD 11:00
PROVIDERS: ATTEND Psychiatry & Neurology Neurology
DX: I63.89 Other cerebral infarction (principal); R00.0 Tachycardia, unspecified; I49.8 Other specified cardiac arrhythmias; Z86.73 Personal history of transient ischemic attack (TIA), and cerebral infarction without residual deficits